=== PATIENT | male | born 1990 | race African-American/Black ===

== ENCOUNTER 2017-09-27 22:35 | Emergency (ER) | payer SELFPAY ==
[2017-09-28] MEDS ORDERED: predniSONE 20 MG TAB ONE (01:20)
== END 2017-09-28 01:25 | disposition home or self-care (01) ==
LOC: ERS 22:35
DX: J45.901 Unspecified asthma with (acute) exacerbation (principal); Z79.899 Other long term (current) drug therapy
CPT/HCPCS: 94640; J7506; J7620